=== PATIENT | male | born 1950 | race Caucasian/White ===

== ENCOUNTER 2019-10-30 00:15 | Outpatient (CLI) | payer MEDICARE, SELFPAY ==
[2019-10-30 18:55] LABS: SARS-CoV-2 RNA PCR Negative
== END 2019-10-30 00:16 | disposition home or self-care (01) ==
LOC: ANHCOVIDDT 00:15
PROVIDERS: Visit Provider Internal Medicine Gastroenterology
DX: Z01.818 Encounter for other preprocedural examination (principal); Z11.59 Encounter for screening for other viral diseases
CPT/HCPCS: 87635; C9803; U0003

== ENCOUNTER 2019-11-01 00:57 | Day surgery (SDC) | payer MEDICARE, SELFPAY ==
[2019-10-26 15:05] VITALS: BMI 35.1
[2019-11-01 08:14] VITALS: BMI 35.0
--- NOTE | 2019-11-01 08:20 | P.PNAN_ITS ---
Anes - Initial Pre Proc Eval Procedure: Operation Date: 11/01/19 09:00 Proposed Procedures p Screening Colonoscopy - Mendez Wyatt MD Date/Time: 11/01/19 08:20 Surgeon: Mendez Wyatt MD Pre Op Diagnosis: neoplasm screening Patient Data Age: 69 Gender: M Height: 1.88 m Weight: 123.7 kg Allergies Allergy/AdvReac Type Severity Reaction Status Date / Time No Known Allergies Allergy Unverified 11/01/19 08:12 Home Medications Medication Instructions Recorded Confirmed Type alpha lipoic acid 300 mg PO DAILY 10/26/19 10/26/19 History aspirin [Adult Low Dose Aspirin] 81 mg PO DAILY 10/26/19 10/26/19 History atorvastatin 10 mg PO DAILY 10/26/19 10/26/19 History cholecalciferol (vitamin D3) 125 mcg PO DAILY 10/26/19 10/26/19 History [Vitamin D3] finasteride 5 mg PO DAILY 10/26/19 10/26/19 History [id number] 1 tablet PO DAILY 10/26/19 10/26/19 History [Multivitamin 50 Plus] Patient hx anesthesia problems: none Family hx anesthesia problems: none PMFSH Past Medical History Medical History (Updated 11/01/19 @ 08:21 by Jose France MD) Hyperlipidemia Obesity Anes - Eval Final PreProcedure Day of Procedure 11/01/19 08:20 Patient weight: obese Heart: regular rate and rhythm Lungs: clear to auscultation and normal air movement Airway: Mallampati scale class II Neurological: alert and oriented Last oral intake: >/= 8 hours ASA classification: II Emergent: no Anesthetic plan: proceed Anesthesia type and monitoring: general GIVS Informed Consent: The patient's anesthetic plan and its attendant risks and be nefits were discussed with the patient/family/POA. Questions were solicited and answers provided to the satisfaction of the patient/family/POA.
[2019-11-01] MEDS: LACTATED RINGERS 1,000 ML 150 ML IV CONT (08:27)
--- NOTE | 2019-11-01 08:34 | P.HP_ITS ---
History of Present Illness History of Present Illness Consent: Risks, benefits, and alternatives have been discussed and questions answered. Patient agrees to proceed with procedure. Chief complaint: neoplasm screening Narrative: Bossman Juarez is a 69 year old W male referred for screening colonoscopy secondary history of colonic polyps. Last colonoscopy was 6 years ago. Patient is asymptomatic and there is no family history of colon cancer. [facility] Past Medical History Medical History (Updated 11/01/19 @ 08:35 by Mendez Wyatt MD) Hyperlipidemia Obesity Peripheral neuropathy Surgical History Surgical History (Updated 11/01/19 @ 08:35 by Mendez Wyatt MD) History of back surgery Status post right knee surgery Meds Home Medications and Allergies Home Medications Medication Instructions Recorded Confirmed Type alpha lipoic acid 300 mg PO DAILY 10/26/19 10/26/19 History aspirin [Adult Low Dose Aspirin] 81 mg PO DAILY 10/26/19 10/26/19 History atorvastatin 10 mg PO DAILY 10/26/19 10/26/19 History cholecalciferol (vitamin D3) 125 mcg PO DAILY 10/26/19 10/26/19 History [Vitamin D3] finasteride 5 mg PO DAILY 10/26/19 10/26/19 History [id number] 1 tablet PO DAILY 10/26/19 10/26/19 History [Multivitamin 50 Plus] Allergies Allergy/AdvReac Type Severity Reaction Status Date / Time No Known Allergies Allergy Unverified 11/01/19 08:12 Exam Const: Orientation/consciousness: patient oriented x3 Resp: Auscultation: clear to auscultation bilaterally Cardio: Rate: regular rate Rhythm: regular rhythm Heart sounds: no murmurs GI: GI Palp: Yes Soft to palpation, No Tenderness to palpation present (GI), Yes No hepatosplenomegaly present and No Palpable mass present Auscultation: normal bowel sounds Neuro: General: patient oriented x3 and no focal motor deficits Extrem: General: no pedal edema Assessment and Plan Additional Plan screening colonoscopy secondary history of colonic polyps
[2019-11-01 09:24] VITALS: BP 102/66; PULSE 55; RESP 18; O2SAT 95
[2019-11-01 09:34] VITALS: BP 113/66; PULSE 55; RESP 18; O2SAT 95
[2019-11-01 09:44] VITALS: BP 133/80; PULSE 66; RESP 18; O2SAT 95
== END 2019-11-01 10:08 | disposition home or self-care (01) ==
PROVIDERS: PCP Internal Medicine; Visit Provider Internal Medicine Gastroenterology
PROC: 0DJD8ZZ Inspection of Lower Intestinal Tract, Via Natural or Artificial Opening Endoscopic (ICD-10-PCS; CPT 45378; principal; 2019-11-01 09:00)
DX: Z12.11 Encounter for screening for malignant neoplasm of colon (principal); E78.5 Hyperlipidemia, unspecified; D12.5 Benign neoplasm of sigmoid colon; K64.8 Other hemorrhoids
CPT/HCPCS: 45385; 87635; 88305; C9803; J2704; J7120; U0003

== ENCOUNTER 2021-02-27 15:42 | Emergency (ER) | payer MEDICARE, SELFPAY ==
[2021-02-27 15:44] VITALS: PULSE 198; RESP 18
--- NOTE | 2021-02-27 15:54 | ED.ARRPALP ---
HPI - Arrhythmia/Palpitations General Chief Complaint: Arrhythmia/Palpitations Stated Complaint: FLUCTUATING HEART BEATS Time Seen by Provider: 02/27/21 15:50 Source: patient Mode of arrival: ambulatory Limitations: no limitations History of Present Illness HPI narrative: Bossman Juarez is a 70-year-old male with a PMH of high cholesterol, idiopathic neuropathy, and BPH who comes to [facility] with fluctuating heart rate for the last 2 hours that gets as high as 180 and drops down to a lower tachycardic rate. He states he can tell when his rate goes way up and when it drops down it makes it feel funny. He is having no chest pain no shortness of breath no diaphoresis, he is somewhat anxious. He has had no cardiac history Related Data Home Medications Medication Instructions Recorded Confirmed Multivitamin 50 Plus 1 tablet PO DAILY 10/26/19 02/27/21 alpha lipoic acid 300 mg PO DAILY 10/26/19 02/27/21 aspirin [Adult Low Dose Aspirin] 81 mg PO DAILY 10/26/19 02/27/21 atorvastatin 10 mg PO DAILY 10/26/19 02/27/21 cholecalciferol (vitamin D3) 125 mcg PO DAILY 10/26/19 02/27/21 [Vitamin D3] finasteride 5 mg PO DAILY 10/26/19 02/27/21 Allergies Allergy/AdvReac Type Severity Reaction Status Date / Time No Known Allergies Allergy Verified 02/27/21 15:48 Review of Systems Review of Systems: CONSTITUTIONAL: Denies fever, chills, sweats. EYES: Denies visual changes, redness, discharge. ENT: Denies rhinorrhea, congestion, sore throat, otalgia. CARDIOVASCULAR: Denies chest pain, palpitations, edema. Elevated pulse rate RESPIRATORY: Denies dyspnea, wheezing, cough GASTROINTESTINAL: Denies abdominal pain, nausea, vomiting, diarrhea. GENITOURINARY: Denies dysuria, hematuria, abnormal discharge SKIN: Denies rash or itching. NEUROLOGIC: Denies numbness, or focal weakness. PSYCHIATRIC: Denies anxiety or depression. [facility] Past Medical History Medical History Hyperlipidemia Obesity Peripheral neuropathy Surgical History Surgical History History of back surgery Status post right knee surgery Social History Social History (Updated 02/27/21 @ 16:07 by Cortney Thakkar CNP) Smoking status: Never smoker Alcohol intake: unknown Comments At time of signature, I agree with nursing past medical, surgical, social and family history. There is no relevant family history pertinent to the presenting complaint. Exam Narrative: GENERAL: This is a well-nourished, well-developed patient, somewhat anxious, HEAD: normocephalic, atraumatic. EYES Sclera clear/white. Vision is grossly intact. EARS: External ears normal, . Hearing grossly intact. NOSE: External nose normal without nasal discharge, nares without redness, no rhinorrhea. THROAT: Mucous membranes moist, NECK: Neck supple, CARDIOVASCULAR: Tachycardic rate and rhythm without murmurs, gallops, or rubs. No chest pain RESPIRATORY: Clear to auscultation. Breath sounds equal bilaterally. No wheezes, rales, or rhonchi. No shortness of breath GASTROINTESTINAL: Abdomen soft, SKIN: warm, intact with no suspicious lesions or rash, good texture and turgor. NEURO: awake, alert, and oriented to person, place and time. There were no obvious focal neurologic abnormalities. Steady gait EXTREMITIES: Normal range of motion. BACK: Nontender without deformity Course Course Emergency Course: Patient comes to [facility] with 2 hours of increased heart rate that is fluctuated from low tachycardia to up to 180 with no chest pain shortness of breath EKG shows sinus tachycardia with a rate of 113, with no axis deviation no T wave changes no QT prolongation however rate is fluctuated between the EKG rate up to 180 when he initially came in to the office. Patient has not had shortness of breath or chest pain and this is new onset for him Transferred to the emergency departmen
[2021-02-27 15:56] VITALS: BP 95/57; PULSE 183; RESP 18; TEMP 36.2; O2SAT 98
--- NOTE | 2021-02-27 15:56 | ECG_ITS ---
Measurements Intervals [place] Rate: 118 P: 31 IA: 191 QRS: -33 QRSD: 94 T: 42 QT: 317 QTc: 445 Interpretive Statements SINUS TACHYCARDIA POSSIBLE LEFT ATRIAL ENLARGEMENT LEFT AXIS DEVIATION BORDERLINE R WAVE PROGRESSION, ANTERIOR LEADS ABNORMAL ECG Electronically Signed On 02-27-2021 20:13:55 CDT by Td Lopez D.O.
[2021-02-27 16:03] VITALS: BP 95/57; PULSE 113; RESP 18; TEMP 36.2; O2SAT 98
== END 2021-02-27 15:57 | disposition short-term general hospital (02) ==
PROVIDERS: Emergency Provider Nurse Practitioner
DX: R00.0 Tachycardia, unspecified (principal); E78.5 Hyperlipidemia, unspecified; E66.9 Obesity, unspecified; Z68.34 Body mass index [BMI] 34.0-34.9, adult; G62.9 Polyneuropathy, unspecified; Z79.82 Long term (current) use of aspirin
CPT/HCPCS: 93005; 99213; G0463

== ENCOUNTER 2021-02-27 16:18 | Observation (INO) | payer MEDICARE, SELFPAY ==
[2021-02-27] VITALS (10 sets, daily range): BP systolic 104–156; BP diastolic 68–104; PULSE 62–175; RESP 16–18; TEMP 36.1–36.8; O2SAT 92–100; BMI 34.3
--- NOTE | ~2021-02-27 | CT_ITS ---
EXAMINATION: CTA chest PE protocol DATE: 02/27/2021 21:08 INDICATION: Tachycardia TECHNIQUE: Computed tomography angiography (CTA) of the chest was performed with 100 mL Omnipaque-350 intravenous contrast timed to evaluate the pulmonary arteries. Coronal maximum intensity projection 3D-reconstructions were created by the technologist. The dose-length product (DLP) was 957.76 mGy-cm. Automated exposure control and iterative reconstruction technique were employed. COMPARISON: None. FINDINGS: The pulmonary arteries are well-opacified. No pulmonary embolism is identified. There is m ild dependent atelectasis. No pleural effusion or pneumothorax is identified. Cardiomegaly is noted. There are no pathologically enlarged thoracic lymph nodes. There are multiple thyroid nodules, the la rgest of which measures 2.2 cm on the right. There is mild thoracic spondylosis. A stone is present in the nondistended gallbladder. IMPRESSION: 1. No pulmonary embolism or acute cardiopulmonary abnormality. 2. Multiple thyroid nodules. Consider nonemergent thyroid ultrasound for risk stratification. Reviewed, dictated and finalized at location A. IMPRESSION: 1. No pulmonary embolism or acute cardiopulmonary abnormality. 2. Multiple thyroid nodules. Consider nonemergent thyroid ultrasound for risk s tratification.
--- NOTE | ~2021-02-27 | US_ITS ---
EXAMINATION: US thyroid EXAM DATE: 02/28/2021 13:17 INDICATION: Multiple thyroid nodules TECHNIQUE: Multiple grayscale and Doppler images of the thyroid were obtained (by a technologist who performed the scan) and subsequently reviewed. Individual nodules and recommendations may be reporte d in accordance with TI-RADS system as designated by the 2017 ACR White Paper TI-RADS committee. The re is no prior study for comparison. FINDINGS: Right thyroid lobe measures 4.9 x 3.5 x 2.8 cm, the left measuring 4.6 x 1.8 x 2.0 cm. There is mildl y diffusely heterogeneous thyroid echogenicity. There are scattered thyroid nodules. Largest nodule is in the right thyroid lobe measuring 2.0 x 2.3 x 1.9, solid (2 points), hypoechoic ( 2 points), taller than wide (3 points), smooth well defined margin, without echogenic foci, category TR5 for this nodule. IMPRESSION: 1. Right thyroid lobe nodule large enough to recommend ultrasound-guided FNA. 2. Multinodular goiter. Reviewed, dictated and finalized at location B.
--- NOTE | ~2021-02-27 | XR_ITS ---
EXAMINATION: XR chest 1V portable INDICATION: Tachycardia TECHNIQUE: Portable AP chest at 1923 hours COMPARISON: None available FINDINGS: There are minimal airspace opacities of the left lung base. No pleural effusion or pneumoth orax is identified. The heart size is upper limits of normal for technique. IMPRESSION: 1. Left basilar airspace opacity, consistent with atelectasis versus pneumonia. Reviewed, dictated and finalized at location A.
--- NOTE | 2021-02-27 15:56 | ECG_ITS ---
Measurements Intervals [place] Rate: 113 P: 13 NE: 209 QRS: -30 QRSD: 96 T: 21 QT: 320 QTc: 439 Interpretive Statements SINUS TACHYCARDIA POSSIBLE LEFT ATRIAL ENLARGEMENT DELAYED PRECORDIAL R/S TRANSITION BASELINE ARTIFACT- II, III, AVR, AVL, AVF ABNORMAL ECG Electronically Signed On 03-04-2021 9:47:15 CDT by Td Lopez D.O.
--- NOTE | 2021-02-27 16:30 | ECG_ITS ---
Measurements Intervals [place] Rate: 171 P: GA: 0 QRS: -16 QRSD: 126 T: 50 QT: 269 QTc: 454 Interpretive Statements SUPRAVENTRICULAR TACHYCARDIA INCOMPLETE RIGHT BUNDLE BRANCH BLOCK DELAYED PRECORDIAL R/S TRANSITION BASELINE ARTIFACT- II, III, AVR, AVL, AVF, V1, V3-V6 ABNORMAL ECG Electronically Signed On 02-27-2021 20:19:15 CDT by Td Lopez D.O.
--- NOTE | 2021-02-27 18:48 | ED.ARRPALP ---
HPI - Arrhythmia/Palpitations General Chief Complaint: Arrhythmia/Palpitations Stated Complaint: palpitations Time Seen by Provider: 02/27/21 18:42 Source: patient Mode of arrival: ambulatory Limitations: no limitations History of Present Illness HPI narrative: Patient is a 70-year-old male complaining of palpitations, heart rate between 130s to 180s on his apple watch, had 3 episodes, would last for approximately few minutes then will go back to normal heart rate of 70-80. Patient denies any symptoms other than the palpitations when his heart rate goes up. Patient denies any chest pain, shortness of breath, B[place] pain, nausea,, diarrhea, diaphoresis, fever or chills. Related Data Home Medications Medication Instructions Recorded Confirmed Multivitamin 50 Plus 1 tablet PO DAILY 10/26/19 02/27/21 alpha lipoic acid 300 mg PO DAILY 10/26/19 02/27/21 aspirin [Adult Low Dose Aspirin] 81 mg PO DAILY 10/26/19 02/27/21 atorvastatin 10 mg PO DAILY 10/26/19 02/27/21 cholecalciferol (vitamin D3) 125 mcg PO DAILY 10/26/19 02/27/21 [Vitamin D3] finasteride 5 mg PO DAILY 10/26/19 02/27/21 Allergies Allergy/AdvReac Type Severity Reaction Status Date / Time No Known Allergies Allergy Verified 02/27/21 15:48 Review of Systems Review of Systems: All systems reviewed & are unremarkable except as noted in HPI and below Constitutional: Constitutional: Denies body ache(s), Denies chills, Denies excessive sweating, Denies fatigue, Denies fever(s), Denies headache(s), Denies lethargy, Denies malaise, Denies weakness and Denies weight loss Eyes: Eyes: Denies blurry vision, Denies change in vision and Denies loss of vision ENT: Denies dizziness, Denies ear discharge, Denies headache(s), Denies lip swelling, Denies epistaxis, Denies nasal congestion, Denies neck pain, Denies throat swelling and Denies tongue swelling Cardiovascular: Cardiovascular: Denies chest pain, Denies chest pain at rest, Denies chest pain with activity, Denies diaphoresis, Denies rapid heart rate, Denies edema, Denies irregular heart rhythm, Denies lightheadedness, Denies dyspnea and Denies dyspnea on exertion Respiratory: Respiratory: Denies chest congestion, Denies cough, Denies hemoptysis, Denies dyspnea and Denies dyspnea on exertion Gastrointestinal: Gastrointestinal: Denies abdominal pain, Denies melena, Denies hematochezia, Denies diarrhea, Denies nausea, Denies vomiting and Denies hematemesis Musculoskeletal: Musculoskeletal: Denies abnormal gait, Denies deformity, Denies joint swelling, Denies limited range of motion, Denies neck pain and Denies numbness Neurologic: Denies Abnormal speech present, Denies abnormal gait, Denies confusion, Denies dizziness, Denies headache(s), Denies focal weakness, Denies loss of vision, Denies numbness, Denies Other visual disturbances, Denies Sensory deficit (Neuro) and Denies weakness Psychiatric: Psychiatric: Denies confusion, Denies depression, Denies auditory hallucinations, Denies homicidal ideation and Denies suicidal ideation Endocrine: Endocrine: Denies cold intolerance, Denies excessive sweating, Denies fatigue, Denies heat intolerance and Denies palpitations Hematologic/Lymphatic: Hematologic/Lymphatic: Denies easy bleeding and Denies easy bruising Allergic/Immunologic: Allergic/Immunologic: Denies lip swelling, Denies throat swelling and Denies tongue swelling PMFSH Past Medical History Medical History Hyperlipidemia Obesity Peripheral neuropathy Surgical History Surgical History History of back surgery Status post right knee surgery Social History Social History Smoking status: Never smoker Alcohol intake: unknown Exam Const: General: cooperative, healthy appearing, comfortable, no acute distress, well developed, alert and awake; No co
[2021-02-27 19:08] LABS: Basophils Percent Auto 0.2 % (0.2-1.2); Eosinophils Absolute Auto 0.1 K/mm3 (0-0.3); Eosinophils Percent Auto 0.5 % (0-4.4); Hematocrit 51.1 % (42.0-52.0); Hemoglobin 17.3 g/dL (14.0-18.0); Immature Granulocyte Absolute 0.04 K/mm3 (0.00-0.031); Immature Granulocyte Percent A 0.3 % (0-0.5); Lymphocytes Absolute Auto 1.24 K/mm3 (0.9-3.2); Lymphocytes Percent Auto 10.2 % (18.3-44.2); Mean Corpuscular HGB Conc 33.9 g/dl (32-36); Mean Corpuscular Hemoglobin 31.6 pg (26-34); Mean Corpuscular Volume 93.4 fl (80-100); Mean Platelet Volume 9.7 fl (7.4-10.4); Monocytes Absolute Auto 1.2 K/mm3 (0.1-0.6); Monocytes Percent Auto 9.8 % (2.6-8.5); Neutrophils Absolute Auto 9.6 K/mm3 (1.3-6.7); Platelet Count Result 215 k/mm3 (150-375); Red Blood Count 5.47 M/mm3 (4.6-6.20); Red Cell Distribution Width 12.2 % (11.5-14.5); White Blood Count 12.1 K/mm3 (4.5-10.0)
--- NOTE | 2021-02-27 19:32 | PC.NURSE ---
HR intermittently 180's per monitor for approx 1 min per episode, caught on EKG. Dr. Aldana notified and given EKG results.
[2021-02-27 19:42] LABS: Alanine Aminotransferase 22 U/L (4-50); Albumin Level 4.4 g/dL (3.5-5.1); Alkaline Phosphatase 77 U/L (38-126); Anion Gap 9 mmol/L (8-16); Aspartate Amino Transferase 22 U/L (17-59); Bilirubin,Total 0.6 mg/dL (0.2-1.3); Blood Urea Nitrogen 18 mg/dL (9-20); Calcium 10.2 mg/dL (8.4-10.2); Carbon Dioxide 26 mmol/L (22-30); Chloride 102 mmol/L (98-107); Estimated CRCL calculation 90 ml/min; Estimated Glomerular Filt Rate > 60; Glucose 123 mg/dL (65-110); Sodium 137 mmol/L (137-145)
[2021-02-27 19:49] LABS: Prothrombin Time 13.3 Seconds (11.1-14.7)
[2021-02-27 19:50] LABS: Partial Thromboplastin Time 26.9 SECONDS (22.3-36.8)
[2021-02-27 19:52] LABS: D Dimer 1.34 ug/mL (<0.48)
[2021-02-27 20:04] LABS: Troponin I 0.088 ng/mL (0.000-0.034)
[2021-02-27] MEDS: METOPROLOL TARTRATE INJ 5 MG/5 ML VIAL IV PUSH (21:50)
[2021-02-27] MEDS: HEPARIN SODIUM 5,000 UNITS/ML VIAL 4000 UNITS IV PUSH (21:53)
[2021-02-27] MEDS: HEPARIN SOD/D5W 100 UNITS/ML 25,000 UNITS/250 ML BAG 10 UNITS IV CONT (21:57)
[2021-02-27 23:41] LABS: Troponin I 0.119 ng/mL (0.000-0.034)
--- NOTE | 2021-02-27 23:45 | ADMGEN ---
This patient, Bossman Juarez, was admitted to IMU Room 210-01. Patient/family oriented to hospital policies and general routines including ID bracelet, bed and alarms, visiting hours, pain management, procedures, bathroom and other care routines, personal items, smoking policy, room service/diet, and visiting hours. Information on how to activate the Rapid Response Team has been discussed. Patient/Family are encouraged to report perceived risks to care and to ask questions if they do not understand what they are told or what they should do.
[2021-02-28] VITALS (12 sets, daily range): BP systolic 129–150; BP diastolic 65–77; PULSE 51–72; RESP 16–24; TEMP 36.1–36.6; O2SAT 95–96
--- NOTE | 2021-02-28 | ECHO_ITS ---
Patient Info Name: Bossman Juarez Age: 70 years : 1950 Gender: Male Ht: 74 in Wt: 267 lbs BSA: 2.55 m2 HR: 78 bpm BP: 140 / 65 mmHg Heart Rhythm: Sinus Rhythm Technical Quality: Fair Exam Date: 02/28/2021 11:55 AM Exam Location: [facility] Pulmonary Exam Room: 210 Patient Status: Inpatient Admit Date: 02/27/2021 Staff Ordering Physician: Kate Gallardo DO Photographic Reproduction Technician: Britni Anderson RDCS Attending Provider: Kate Gallardo DO Referring Physician: Sami HERNANDEZ; Exam Type: CA echo doppler color flow Study Info Indications - svt elevated troponins Complete two-dimensional, color flow and Doppler transthoracic echocardiogram is performed. Summary 1. Complete two-dimensional, color flow and Doppler transthoracic echocardiogram is performed. 2. Left ventricular chamber dimension is normal. 3. Left ventricular systolic function is normal, estimated at 65-70%. 4. There is mildly increased left ventricular wall thickness. 5. The left ventricular diastolic function is grade I diastolic dysfunction. 6. Right ventricular chamber dimension is mildly enlarged. 7. There is mild aortic valve calcification. 8. There is moderate aortic valve sclerosis. 9. There is mild tricuspid valve regurgitation. Left Ventricle Left ventricular chamber dimension is normal. Left ventricular systolic function is normal, estimated at 65-70%. There is mildly increased left ventricular wall thickness. The left ventricular diastolic function is grade I diastolic dysfunction. Right Ventricle Right ventricular chamber dimension is mildly enlarged. Right ventricular systolic function is normal. Left Atria Left atrial chamber dimension is mildly enlarged. Right Atria Right atrial chamber dimension is normal. Atrial Septum Intact interatrial septum visualized by color flow imaging. Aortic Valve The aortic valve is probable trileaflet. There is moderate aortic valve sclerosis. There is no aortic valve stenosis. There is trace aortic valve regurgitation. There is mild aortic valve calcification. Pulmonic Valve The pulmonic valve is normal. There is no pulmonic valve stenosis. There is trace pulmonic regurgitation. Mitral Valve The mitral valve has normal leaflets. There is no mitral valve stenosis. There is trace mitral valve regurgitation. Tricuspid Valve The tricuspid valve leaflets are normal. There is no significant tricuspid valve stenosis. There is mild tricuspid valve regurgitation. No pulmonary hypertension, estimated pulmonary arterial systolic pressure is 34 mmHg. Pericardium/Pleural The pericardium appears normal. There is no pericardial effusion. Inferior Vena Cava Normal inferior vena cava with >50% collapse upon inspiration consistent with normal right atrial pressure, 5 mmHg. Aorta The aortic root size at the sinus of Valsalva is normal. Left Ventricular Outflow Tract Name Value Normal LVOT 2D LVOT Diameter 2.1 cm LVOT Doppler LVOT Peak Gradient 5 mmHg LVOT Mean Gradient 4 mmHg LVOT VTI
--- NOTE | 2021-02-28 01:12 | PM.IMHP ---
H&P: [facility] History of Present Illness Date/Time: 02/28/21 00:30 Chief Complaint: Fast heart rate Narrative: 70-year-old male with past medical history of obesity, hyperlipidemia and BPH who presented to the ER with sensation of heart racing and palpitations. The patient reports that around 2:00 p.m. his heart rate suddenly shot up to between 130-180 on his Apple watch. He had associated symptoms of palpitations is. He denies having any chest pain. He reports he has been having intermittent episodes of rapid heart rate the last anywhere from 30 seconds to a couple minutes since July. The episodes used to be infrequent until today. In today he reported that he had the symptoms would occur anywhere from few minutes to every 15-20 minutes. When his symptoms continued to occur he decided to go to the urgent care and they directed him to the ER. Patient denies any chest pain or shortness of breath. He reports that he feels a sensation in his neck and upper chest whenever with tachycardia occurs. He reports that he had at least symptoms every 3-4 minutes well in the ER waiting room. Once he was back into the ER he had at least 4 episodes of SVT noted on telemetry. The patient's baseline resting heart rate is between 58 and 65. He reports that when he started having symptoms back in July she pretty much cut out all caffeine. He does not take any supplements besides his prescribed medications. He does note increased symptoms if he goes out and exerts himself significantly. He denies any orthopnea, lower extremity swelling, paroxysmal nocturnal dyspnea, or episodes of syncope. He does snore quite loudly but reports this snoring is better if he loses weight. He has never been tested for sleep apnea. He does sleep for 4-5 hours a night and then takes a nap in the afternoon. He denies any excessive daytime sleepiness. His has never reported him having episodes of apnea. He does have a history of white coat hypertension. A CT of the chest were performed in the ER due to elevated D-dimer. His CTA was negative for pulmonary embolism but did demonstrate multiple thyroid nodules. His TSH was normal. He denies any recent weight changes, hair loss, changes in skin, or constipation. Review of Systems Review of Systems: 12 systems were reviewed with pertinent positives and negatives per HPI. Except as documented in the HPI, all other systems were reviewed and are negative. [facility] Past Medical History Medical History (Updated 02/28/21 @ 03:33 by Kate Gallardo DO) Hyperlipidemia Obesity Peripheral neuropathy White coat syndrome with hypertension Surgical History Surgical History (Updated 02/28/21 @ 03:23 by Kate Gallardo DO) History of back surgery History of colonoscopy with polypectomy History of tonsillectomy and adenoidectomy Status post right knee surgery Due to torn ligaments Family History Family History (Updated 02/28/21 @ 03:25 by Kate Gallardo DO) Father MVA (motor vehicle accident) Mother , at age 83 CHF (congestive heart failure) Atrial fibrillation Daughter Thyroid disease Social History Social History Smoking status: Never smoker Alcohol intake: former Substance use: never Spiritual care concerns: No Comments He has 3 children. One of his daughters has thyroid disease. He has 4 grand children. Meds Home Medications and Allergies Home Medications Medication Instructions Recorded Confirmed Type Multivitamin 50 Plus 1 tablet PO HS 10/26/19 02/28/21 History alpha lipoic acid 300 mg PO HS 10/26/19 02/28/21 History aspirin [Adult Low Dose Aspirin] 81 mg PO HS 10/26/19 02/28/21 History atorvastatin 10 mg PO HS 10/26/19 02/28/21 History cholecalciferol (vitamin D3) 125 mcg PO HS 10/26/19 02/28/21 History [Vitamin D3] finasteride 5 mg PO HS 10/26/19 02/28/21 History Allergies Allergy/AdvReac Type S
[2021-02-28 06:20] LABS: Hematocrit 48.7 % (42.0-52.0); Hemoglobin 16.5 g/dL (14.0-18.0); Mean Corpuscular HGB Conc 33.9 g/dl (32-36); Mean Corpuscular Hemoglobin 31.6 pg (26-34); Mean Corpuscular Volume 93.3 fl (80-100); Mean Platelet Volume 10.3 fl (7.4-10.4); Platelet Count Result 167 k/mm3 (150-375); Red Blood Count 5.22 M/mm3 (4.6-6.20); Red Cell Distribution Width 12.2 % (11.5-14.5); White Blood Count 8.9 K/mm3 (4.5-10.0)
[2021-02-28 06:35] LABS: Anion Gap 8 mmol/L (8-16); Blood Urea Nitrogen 16 mg/dL (9-20); Calcium 9.5 mg/dL (8.4-10.2); Carbon Dioxide 28 mmol/L (22-30); Chloride 104 mmol/L (98-107); Estimated CRCL calculation 114 ml/min; Estimated Glomerular Filt Rate > 60; Glucose 97 mg/dL (65-110); Magnesium 1.7 mg/dL (1.6-2.3); Potassium 3.8 mmol/L (3.4-5.0); Sodium 140 mmol/L (137-145)
[2021-02-28 06:58] LABS: Troponin I 0.085 ng/mL (0.000-0.034)
[2021-02-28 07:06] LABS: Total Triiodothyronine (T3) 0.99 NG/ML (0.97-1.69)
[2021-02-28 09:57] LABS: Free T4 Free Thyroxine 2.06 ng/mL (0.78-2.19)
--- NOTE | 2021-02-28 11:34 | PM.IMPN ---
Subjective Date/time seen: 02/28/21 11:34 Objective Data Vital Signs Vital Signs: Vital Signs - 24 hr 02/27/21 16:25 02/27/21 19:30 02/27/21 19:59 Temperature 98.2 F Pulse Rate 79 173 H 96 Respiratory Rate 18 16 18 Blood Pressure 144/104 H 156/88 H 127/86 Pulse Oximetry 94 97 92 02/27/21 20:30 02/27/21 20:45 02/27/21 21:49 Temperature Pulse Rate 175 H 142 H 81 Respiratory Rate 16 16 16 Blood Pressure 128/86 124/84 150/92 H Pulse Oximetry 98 97 97 02/27/21 21:50 02/27/21 22:03 02/27/21 22:32 Temperature Pulse Rate 83 76 62 Respiratory Rate 16 17 Blood Pressure 104/68 131/71 Pulse Oximetry 96 96 02/27/21 23:49 02/28/21 00:00 02/28/21 02:00 Temperature 96.9 F L Pulse Rate 62 64 57 L Respiratory Rate 16 Blood Pressure 153/77 H Pulse Oximetry 100 02/28/21 03:46 02/28/21 04:00 02/28/21 06:00 Temperature 97.3 F L Pulse Rate 61 56 L 53 L Respiratory Rate 16 Blood Pressure 140/65 Pulse Oximetry 96 02/28/21 08:00 02/28/21 08:42 02/28/21 10:00 Temperature 96.9 F L Pulse Rate 59 L 51 L 65 Respiratory Rate 20 Blood Pressure 129/77 Pulse Oximetry 95 Intake/Output Intake/Output: Intake & Output 02/25/21 02/26/21 02/27/21 02/28/21 23:59 23:59 23:59 23:59 Intake Total 420 Output Total 375 Balance 45 Meds/Results Medications: Active Medications Generic Name Dose Route Start Last Admin Trade Name Freq PRN Reason Stop Dose Admin Heparin Sodium (Porcine) 4,000 units 02/27/21 20:30 Heparin Sodium 5,000 Units/Ml Vial IV PUSH PRN PRN aPTT less than 55 seconds Heparin Sodium (Porcine) 4,000 units 02/27/21 20:30 Heparin Sodium 5,000 Units/Ml Vial IV PUSH PRN PRN aPTT 55 - 70 seconds Heparin Sodium/Dextrose 25,000 units in 250 mls @ 10 mls/hr 02/27/21 20:34 02/28/21 06:36 Heparin Sodium/D5w 100 Units/Ml IV CONT 02/28/21 20:33 1,000 units/hr .Q24H STA 10 mls/hr Infusion Protocol 1,000 UNITS/HR Heparin Sodium/Dextrose 25,000 units in 250 mls @ 10 mls/hr 02/28/21 20:00 Heparin Sodium/D5w 100 Units/Ml IV CONT .Q24H GISELA Protocol 1,000 UNITS/HR Radiology Results: ITS Impressions Chest X-Ray 02/27/21 19:51 IMPRESSION: 1. Left basilar airspace opacity, consistent with atelectasis versus pneumonia. Chest CTA 02/27/21 21:10 IMPRESSION: 1. No pulmonary embolism or acute cardiopulmonary abnormality. 2. Multiple thyroid nodules. Consider nonemergent thyroid ultrasound for risk stratification. Labs Labs: Laboratory Results - last 24 hr 02/27/21 02/27/21 02/27/21 18:58 19:23 19:23 WBC 12.1 H RBC 5.47 Hgb 17.3 Hct 51.1 MCV 93.4 MCH 31.6 MCHC 33.9 RDW 12.2 Plt Count 215 MPV 9.7 Immature Gran % (Auto) 0.3 Neut % (Auto) 79.0 H Lymph % (Auto) 10.2 L [place] % (Auto) 9.8 H Eos % (Auto) 0.5 Baso % (Auto) 0.2 Lymph # (Auto) 1.24 [place] # (Auto) 1.2 H Eos # (Auto) 0.1 Baso # (Auto) 0.0 Abs Immat Gran (auto) 0.04 H Absolute Neuts (auto) 9.6 H Absolute Nucleated RBC 0.0 Nucleated RBC % 0.0 PT 13.3 INR 1.0 APTT 26.9 D-Dimer 1.34 H Sodium 137 Potassium 4.0 Chloride 102 Carbon Dioxide 26 Anion Gap 9 BUN 18 Creatinine 0.90 Estim Creat Clear Calc 90 Estimated GFR > 60 Glucose 123 H Calcium 10.2 Magnesium Total Bilirubin 0.6 AST 22 ALT 22 Alkaline Phosphatase 77 Troponin I 0.088 H* Total Protein 7.0 Albumin 4.4 TSH 1.430 Free T4 Total T3 02/27/21 02/28/21 02/28/21 22:36 05:30 05:30 WBC RBC Hgb Hct MCV MCH MCHC RDW Plt Count MPV Immature Gran % (Auto) Neut % (Auto) Lymph % (Auto) [place] % (Auto) Eos % (Auto) Baso % (Auto) Lymph # (Auto) [place] # (Auto) Eos # (Auto) Baso # (Auto) Abs Immat Gran (auto) Absolute
--- NOTE | 2021-02-28 13:03 | PM.CNCAR ---
Assessment and Plan Assessment and plan (1) Elevated troponin: Code(s): R77.8 - Other specified abnormalities of plasma proteins Status: Acute Assessment and Plan: Likely secondary to SVT rather than acute plaque rupture. Will discontinue his heparin drip. Low-dose aspirin 81 mg p.o. daily to be continued until ischemic workup is completed. (2) Multiple thyroid nodules: Code(s): E04.2 - Nontoxic multinodular goiter Status: Acute Assessment and Plan: Thyroid ultrasound to be performed either as inpatient or outpatient (3) Paroxysmal supraventricular tachycardia: Code(s): I47.1 - Supraventricular tachycardia Status: Acute Assessment and Plan: Frequent paroxysms. Will check a TSH, free T4 level. Magnesium level is slightly low and will replace with 2 g of IV magnesium. 2D echocardiogram with Doppler will be ordered and reviewed. Metoprolol 25 mg p.o. b.i.d. to be started. Calcium channel myra such as diltiazem could be used instead of a beta-myra if he has breakthrough episodes on a beta-myra. Outpatient stress test for ischemic evaluation is recommended. Outpatient sleep study also is recommended. Patient is also advised to avoid caffeine, limits stress, avoid Sudafed or like compounds and alcohol. Further workup and recommendations will be dependent on the results of the above tests and how he response to treatment. (4) Hyperlipidemia: Code(s): E78.5 - Hyperlipidemia, unspecified Status: Acute Assessment and Plan: Continue statin (5) Obesity: Qualifiers: Obesity type: due to excess calories Obesity classification: adult class 1 (BMI 30 - 34.9) Serious obesity comorbidity presence: unspecified whether serious comorbidity present Body mass index: BMI 34.0-34.9 Qualified Code(s): E66.09 - Other obesity due to excess calories; Z68.34 - Body mass index [BMI] 34.0-34.9, adult Code(s): E66.9 - Obesity, unspecified Status: Acute Assessment and Plan: Dietary and lifestyle modifications for weight loss. History of Present Illness History of Present Illness Consult date/time: 02/28/21 13:03 Requesting physician: Derik Longo MD Consult reason: Other (SVT, positive troponins) Reason For Visit: NSTEMI, Paroxysmal SVT Narrative: Date of service 02/28/2021 Reason consultation: SVT, positive troponins Requesting provider Dr. Longo History: Patient is a 70-year-old male who does not have any cardiac history. He does have a history of obesity, hyperlipidemia, neuropathy and BPH. He states that he had episode last July were he was flying to [place] and had a sudden onset of elevated heart rate which lasted about 3-4 hours. He attributed that to caffeine and stress at the time. Over the summer he had 3 or 4 more episodes which she attributed to working in the heat. Over the past week though he had an episode while doing some heavy lifting and then yesterday had an episode in which she had multiple frequent increased heart rates that would go up to 180 beats per minute or so and then come back down. This occurred numerous times. Whenever he had an elevated heart rate episode, it would only last for seconds to minutes and then subside. Relatively sudden onset and sudden offset. He tolerated these episodes well and did not have any associated chest pain, shortness of breath, syncope or presyncope. Because of the frequency though of these episodes he came to the emergency department for further workup evaluation. In the ER he was found to have frequent paroxysms of supraventricular tachycardia. Day would be brief and then subside but would return shortly thereafter. Troponins did bump up slightly with a peak troponin of 0.119. He was given a dose of IV metoprolol in the ER which has since settled his rhythm down. He otherwise has had no chest pain, shortness breath, syncope, presyncope, paroxysmal nocturnal dyspnea,
[2021-02-28] MEDS: ASPIRIN 81 MG ENTERIC TABLET PO (14:45)
[2021-02-28] MEDS: MAGNESIUM SULF 2 GM/WATER 50ML 2 GM/50 ML BAG IVPB (14:45)
[2021-02-28] MEDS: METOPROLOL TARTRATE 25 MG TABLET PO (14:45)
--- NOTE | 2021-02-28 14:50 | PM.DS ---
DS: Admitting Diagnosis Discharge Date 02/28/2021 Admitting Diagnosis Assessment and plan (1) Paroxysmal supraventricular tachycardia: Code(s): I47.1 - Supraventricular tachycardia Status: Acute Assessment and Plan: Patient is back in sinus rhythm after IV Lopressor given in the ER. Check echocardiogram to evaluate cardiac structure and function. Cardiology has been consulted. (2) Elevated troponin: Code(s): R77.8 - Other specified abnormalities of plasma proteins Status: Acute Assessment and Plan: Not likely due to ischemic event. More likely due to high-output demand with burst of SVT. Will trend troponins. Cardiology has been consulted. Patient was started on heparin drip by ER. (3) Obesity: Qualifiers: Obesity type: due to excess calories Obesity classification: adult class 1 (BMI 30 - 34.9) Serious obesity comorbidity presence: unspecified whether serious comorbidity present Body mass index: BMI 34.0-34.9 Qualified Code(s): E66.09 - Other obesity due to excess calories; Z68.34 - Body mass index [BMI] 34.0-34.9, adult Code(s): E66.9 - Obesity, unspecified Status: Acute Assessment and Plan: The patient does have a history of significant snoring. In the setting of new cardiac arrhythmia patient would benefit from outpatient polysomnogram. (4) Multiple thyroid nodules: Code(s): E04.2 - Nontoxic multinodular goiter Status: Acute Assessment and Plan: Thyroid ultrasound has been ordered. TSH was normal. T3 and free T4 been ordered. DS: Discharge Diagnosis Discharge Diagnosis (1) Paroxysmal supraventricular tachycardia: Code(s): I47.1 - Supraventricular tachycardia Status: Acute Assessment and Plan: Patient is back in sinus rhythm after IV Lopressor given in the ER. Check echocardiogram to evaluate cardiac structure and function. Cardiology has been consulted. (2) Elevated troponin: Code(s): R77.8 - Other specified abnormalities of plasma proteins Status: Acute Assessment and Plan: Not likely due to ischemic event. More likely due to high-output demand with burst of SVT. Will trend troponins. Cardiology has been consulted. Patient was started on heparin drip by ER. (3) Obesity: Qualifiers: Body mass index: BMI 34.0-34.9 Obesity classification: adult class 1 (BMI 30 - 34.9) Obesity type: due to excess calories Serious obesity comorbidity presence: unspecified whether serious comorbidity present Qualified Code(s): E66.09 - Other obesity due to excess calories; Z68.34 - Body mass index [BMI] 34.0-34.9, adult Code(s): E66.9 - Obesity, unspecified Status: Acute Assessment and Plan: The patient does have a history of significant snoring. In the setting of new cardiac arrhythmia patient would benefit from outpatient polysomnogram. (4) Multiple thyroid nodules: Code(s): E04.2 - Nontoxic multinodular goiter Status: Acute Assessment and Plan: Thyroid ultrasound has been ordered. TSH was normal. T3 and free T4 been ordered. DS: Summary Hospital Course Reason for hospitalization: Palpitations Hospital Course: Chief Complaint: Fast heart rate Narrative: 70-year-old male with past medical history of obesity, hyperlipidemia and BPH who presented to the ER with sensation of heart racing and palpitations. The patient reports that around 2:00 p.m. his heart rate suddenly shot up to between 130-180 on his [employer] watch. He had associated symptoms of palpitations is. He denies having any chest pain. He reports he has been having intermittent episodes of rapid heart rate the last anywhere from 30 seconds to a couple minutes since July. The episodes used to be infrequent until today. In today he reported that he had the symptoms would occur anywhere from few minutes to every 15-20 minutes. When his symptoms continued to occur he de
== END 2021-02-28 15:53 | disposition home or self-care (01) ==
LOC: ANHED 21:58 → ANHIMU 02-28 14:55
PROVIDERS: Admitting Provider Internal Medicine; Emergency Provider Emergency Medicine; Visit Provider Internal Medicine
DX: I47.1 Supraventricular tachycardia (principal); R77.8 Other specified abnormalities of plasma proteins; E66.9 Obesity, unspecified; E78.5 Hyperlipidemia, unspecified; N40.0 Benign prostatic hyperplasia without lower urinary tract symptoms; Z68.34 Body mass index [BMI] 34.0-34.9, adult; Z79.82 Long term (current) use of aspirin; Z79.899 Other long term (current) drug therapy
CPT/HCPCS: 36415; 71045; 71275; 76536; 80048; 80053; 83735; 84439; 84443; 84480; 84484; 85025; 85027; 85380; 85610; 85730; 93005; 93306; 96365; 96366; 96375; 99285; A9270; G0378; J1644; J3475; Q9967